=== PATIENT | male | born 1970 | race African-American/Black ===

== ENCOUNTER 2024-03-07 15:57 | Inpatient (IN) | payer OTHER ==
[~2024-03-07] VITALS: Ht 185.4 cm; Wt 83.8 kg
[2024-03-07 16:25] LABS: Basophils # (auto) 0 10 ^3/uL (0-0.2); Basophils % (auto) 0.3 % (0.0-2.0); Eosinophils # (auto) 0 10 ^3/uL (0-0.8); Hematocrit 38.8 % (41.0-53.0); Hemoglobin 13.2 g/dL (13.5-17.5); Mean Corpuscular Hemoglobin 28.8 pg (28.0-32.0); Mean Corpuscular Hgb Conc. 34.1 g/dL (32.0-36.0); Mean Corpuscular Volume 84.4 fL (80.0-100.0); Monocytes # (auto) 0.9 10 ^3/uL (0-1.3); Neutrophils # (auto) 12.6 10 ^3/uL (1.6-8.6); Neutrophils % (auto) 86.7 % (37.0-80.0); Platelet Count (auto) 328 10^3/uL (140-450); Red Cell Distribution Width 14.4 % (11.8-14.3); White Blood Cell 14.6 10^3/uL (4.4-10.8)
[2024-03-07] MEDS: KETOROLAC TROMETH 30 MG/ML 1ML VIAL IM ONE (16:30)
--- NOTE | 2024-03-07 16:30 | DVH ---
CHEST RADIOGRAPH Indication: CP Technique: Single frontal view of the chest was obtained Comparison: None FINDINGS: Lines and Tubes: None Lungs: Patchy opacity near the right cardiophrenic angle. Pleura: No effusion. No pneumothorax. Cardiomediastinal contours: Unremarkable Bones: No acute osseous abnormality. IMPRESSION: 1. Right lower lung zone patchy opacity could represent developing infiltrate versus atelectasis. HS:Y
[2024-03-07 17:16] LABS: Alanine Aminotransferase 13 U/L (7-40); Albumin 4.2 g/dL (3.2-4.8); Anion Gap 14 (5-15); BUN/Creatinine Ratio 12.3 (10.0-20.0); Blood Urea Nitrogen 16 mg/dL (9-23); Calcium 9.8 mg/dL (8.7-10.4); Potassium 3.6 mmol/L (3.5-5.1)
[2024-03-07 17:17] LABS: Alkaline Phosphatase 44 U/L (46-116); Aspartate Aminotransferase 8 U/L (13-40); Bilirubin, Total 1.8 mg/dL (0.2-1.0); Carbon Dioxide 18 mmol/L (20-31); Chloride 92 mmol/L (98-107); Glucose 254 mg/dL (74-106); Sodium 124 mmol/L (136-145)
[2024-03-07 17:27] VITALS: PULSE 79; RESP 14; O2SAT 98
[2024-03-07] MEDS: cefTRIAXone 1GM/50ML D5W 50 ML IV ONE (17:41)
[2024-03-07] MEDS: AZITHROMYCIN 500MG/ 250ML 250 ML IV ONE (17:41)
[2024-03-07 18:05] LABS: Lactic Acid w/Reflex 2.9 mmol/L (0.4-2.0)
[2024-03-07] MEDS: IOHEXOL 350 MG/ML 100ML IJ ONE (18:48)
--- NOTE | 2024-03-07 18:48 | DVH ---
EXAM: CT HEAD WITHOUT CONTRAST INDICATION: aloc TECHNIQUE: CT of the head without intravenous contrast. Radiation Dose Information: CT Dose: CTDI volume is 59.19 mGy. Dose-length product is 1240.44 mGy*cm The dose indicators for CT are the volume Computed Tomography (CT) Dose Index (CTDIvol) and the Dose Length Product (DLP), and are measured in units of mGy and mGy-cm, respectively. These indicators are not patient dose, but values generated from the CT scanner acquisition factors. The report includes radiation exposure data for exposures received during this examination. COMPARISON: None FINDINGS: There is no evidence of acute intracranial hemorrhage, extra-axial collection, mass effect, midline s hift, herniation or hydrocephalus. The ventricles, sulci and cisterns are age appropriate. The ramos-white differentiation is intact. Patchy periventricular and subcortical white matter hypoattenuation is nonspecific but may be related to small vessel ischemic disease. The visualized paranasal sinuses and mastoid air cells are clear. The surrounding soft tissues and osseous structures are unremarkable. IMPRESSION: 1. No acute intracranial hemorrhage. 2. No CT findings of territorial ischemia.
[2024-03-07] MEDS: SODIUM CHLORIDE 0.9% 1,000 ML IV ONE ×2 (18:49→20:15)
--- NOTE | 2024-03-07 19:21 | DVH ---
CLINICAL HISTORY: sob TECHNIQUE: CT angiogram of the chest was performed with intravenous contrast. 3D MIP reconstructed i mages were created and archived on the PACS system. This exam was performed according to our [facility] dose optimization program. Up-to-date CT equipment and radiation dose reduction techniques are u tilized as appropriate. CTDI: [CTDIvol] DLP: 895.17 WID: COMPARISON: None FINDINGS: Lower Neck: Unremarkable Axilla, Mediastinum and Serene: There is right hilar lymphadenopathy. A few enlarged mediastinal lymph nodes. No left hilar lymphadenopathy. No axillary lymphadenopathy. Heart and Great Vessels: Normal-sized heart with trace pericardial fluid. The thoracic aorta is frederick nt and normal caliber. Patent 3-vessel aortic arch. No central or segmental pulmonary artery filling defect to suggest pulmonary embolism. There is motion artifact in the lower lungs limiting evaluatio n for more distal pulmonary artery filling defects Airway, Lungs and Pleura: Trachea and central airways are patent. There is a small consolidation with a central cavitation in the right middle lobe measuring approximately 2.1 x 4.7 cm on series 3, imag e 88. There is no pleural effusion or pneumothorax. Chest Wall and Osseous Structures: Multilevel thoracic spondylosis. Mild degenerative changes of the bilateral shoulders. No destructive osseous lesion. Upper abdomen: No acute abnormality IMPRESSION: 1. No evidence of pulmonary embolism, slight limited evaluation of subsegmental pulmonary arteries du e to respiratory motion. 2. Consolidation with cavitation in the right middle lobe suggesting pneumonia. Follow-up CT chest r ecommended after appropriate course of medical therapy to assess for improvement or resolution. 3. Right hilar and mediastinal lymphadenopathy, nonspecific though likely reactive
--- NOTE | 2024-03-07 19:31 | ED.PDOC ---
HPI (NEURO) HPI Comments 53-year-old male brought in by friend. Friend states that patient was recently diagnosed with pneumonia, he was lying in his bed over a week. Been diaphoretic. He noticed today that patient was acting more confused. He picked up the patient and put him in the car to make him come to the emergency department. Patient states he was seen at [facility] last week. He was complaining of shortness a breath body ache fever. When nurses went to recheck the patient patient was stating he had no pain and started to make no coherent since. Patient was brought back and placed in room 19. Chief Complaint: General Weakness Time Seen by MD: 16:00 Reviewed Notes: Nurses Notes Information Source: Patient, Friend, Relative Mode of Arrival: Wheelchair Past Medical History PAST MEDICAL HISTORY: DM, HTN Constitutional: reports: diaphoresis, fatigue, fever; denies: chills, malaise, sweats, weakness, others EENTM: denies: blurred vision, double vision, ear bleeding, ear discharge, ear drainage, ear pain, ear ringing, eye pain, eye redness, hearing loss, mouth pain, mouth swelling, nasal discharge, nose bleeding, nose congestion, nose pain, photophobia, tearing, throat pain, throat swelling, voice changes, others Respiratory: reports: cough, SOB at rest; denies: hemoptysis, orthopnea, shortness of breath, SOB with excertion, stridor, wheezing, others Cardiovascular: denies: chest pain, dizzy spells, diaphoresis, Dyspnea on exertion, edema, irregular heart beat, left arm pain, lightheadedness, palpitations, PND, syncope, others Gastrointestinal: denies: abdomen distended, abdominal pain, blood streaked bowels, constipated, diarrhea, dysphagia, difficulty swallowing, hematemesis, melena, nausea, poor appetite, poor fluid intake, rectal bleeding, rectal pain, vomiting, others Genitourinary: denies: burning, dysuria, flank pain, frequency, hematuria, incontinence, penile discharge, penile sore, pain, testicle pain, testicle swelling, urgency, others Neurological: denies: dizziness, fainting, headache, left sided numbness, left sided weakness, numbness, paresthesia, pre-existing deficit, right sided numbness, right sided weakness, seizure, speech problems, tingling, tremors, weakness, others Musculoskeletal: denies: back pain, gout, joint pain, joint swelling, muscle pain, muscle stiffness, neck pain, others Integumetry: denies: bruises, change in color, change in hair/nails, dryness, laceration, lesions, lumps, rash, wounds, others Allergic/Immunocompromised: denies: Difficulty Healing, Frequent Infections, Hives, Itching, others Physical Exam General Appearance: Moderate Distress, Normal HEENT: Normal ENT Inspection, Pharynx Normal, TMs Normal Neck: Full Range of Motion, Non-Tender, Normal, Normal Inspection Respiratory: Chest Non-Tender, Decreased Breath Sounds, No Accessory Muscle Use, No Respiratory Distress, Normal Breath Sounds Cardiovascular: No Edema, No JVD, No Murmur, No Gallop, Normal Peripheral Pulses, Regular Rate/Rhythm Breast Exam: Deferred Gastrointestinal: No Organomegaly, Non Tender, No Pulsatile Mass, Normal Bowel Sounds, Soft Genitalia: Deferred Pelvic: Deferred Rectal: Deferred Extremities: No calf tenderness, Normal capillary refill, Normal inspection, Normal range of motion, Non-tender, No pedal edema Musculoskeletal : Apperance: Normal 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 Was a procedure done?: No Differential Diagnosis (SZ) Seizure: Syncope, N/A General Weakness: Anemia, Dehydration, Dysrhythmia, Electrolyte imbalance, Renal failure X-Ray, Labs, Meds, VS Vital Signs Date Time Temp Pulse Resp B/P (MAP) Pulse Ox O2 Delivery O2 Flow Rate FiO2 03/07/24 18:00 60 21 117/81 (93) 100 03/07/24 17:33 78 16 127/77 (94) 97 03/07/24 17:27 79 14 98 Room Air* 0 21 03/07/24 16:12 98.1 115 20 122/75 (91) 100 03/07/24 16:04 115 Lab Test 03/07/24 19:10 03/07/24 17:10 03/07/24 16:10 03/07/24 16:02 Range/Units Lactic Acid Level Pending 2.9 *H 0.4-2.0 mmol/L Troponin I High Sensitivity Pending 21 26 </=54 ng/L White Blood Count 14.6 H 4.4-10.8 10^3/uL Red Blood Count 4.60 4.5-5.90 10^6/uL Hemoglobin 13.2 L 13.5-17.5 g/dL Hematocrit 38.8 L 41.0-53.0 % Mean Corpuscular Volume 84.4 80.0-100.0 fL Mean Corpuscular Hemoglobin 28.8 28.0-32.0 pg Mean Corpuscular Hemoglobin Concent 34.1 32.0-36.0 g/dL Red Cell Distribution Width 14.4 H 11.8-14.3 % Platelet Count 328 140-450 10^3/uL Mean Platelet Volume 7.8 6.9-10.8 fL Neutrophils (%) (Auto) 86.7 H 37.0-80.0 % Lymphocytes (%) (Auto) 7.0 L 10.0-50.0 % Monocytes (%) (Auto) 6.0 0.0-12.0 % Eosinophils (%) (Auto) 0.0 0.0-7.0 % Basophils (%) (Auto) 0.3 0.0-2.0 % Neutrophils # (Auto) 12.6 H 1.6-8.6 10 ^3/uL Lymphocytes # (Auto) 1.0 0.4-5.4 10 ^3/uL Monocytes # (Auto) 0.9 0-1.3 10 ^3/uL Eosinophils # (Auto) 0 0-0.8 10 ^3/uL Basophils # (Auto) 0 0-0.2 10 ^3/uL Nucleated Red Blood Cells 0.0 % Sodium Level 124 L 136-145 mmol/L Potassium Level 3.6 3.5-5.1 mmol/L Chloride Level 92 L 98-107 mmol/L Carbon Dioxide Level 18 L 20-31 mmol/L Anion Gap 14 5-15 Blood Urea Nitrogen 16 9-23 mg/dL Creatinine 1.30 0.700-1.30 mg/dL Glomerular Filtration Rate Calc 65 >90 mL/min BUN/Creatinine Ratio 12.3 10.0-20.0 Serum Glucose 254 H 74-106 mg/dL Calcium Level 9.8 8.7-10.4 mg/dL Total Bilirubin 1.8 H 0.2-1.0 mg/dL Aspartate Amino Transferase (AST) 8 L 13-40 U/L Alanine Aminotransferase (ALT) 13 7-40 U/L Alkaline Phosphatase 44 L 46-116 U/L B-Type Natriuretic Peptide 7.20 0-100 pg/mL Total Protein 7.0 5.7-8.2 g/dL Albumin 4.2 3.2-4.8 g/dL POC Glucose 282 H 70-106 mg/dl Current Medications Medications (Trade) Dose Ordered Sig/Mk Route Start Time Stop Time Status Last Admin Ketorolac Tromethamine (Toradol Injection) 30 mg ONCE ONCE IM 03/07/24 16:15 03/07/24 16:16 DC 03/07/24 16:30 Azithromycin 250 ml @ 125 mls/hr ONCE ONCE IV 03/07/24 17:00 03/07/24 18:59 DC 03/07/24 17:41 Ceftriaxone Sodium 50 ml @ 100 mls/hr ONCE ONCE IV 03/07/24 17:00 03/07/24 17:29 DC 03/07/24 17:41 Sodium Chloride 1,000 ml @ 1,000 mls/hr Q1H ONCE IV 03/07/24 19:00 03/07/24 19:59 03/07/24 18:49 X-Ray, Labs, Meds, VS Comment Patient will be admitted for metabolic encephalopathy Patient has pneumonia with suspected sepsis anemia Blood cultures, patient was started on azithromycin and Rocephin 2 L IV fluid bolus started Patient has prior medical visits reviewed. Med reconciliation performed Vital signs reviewed Time of 1ST Reevaluation: 19:30 Reevaluation 1ST: Unchanged Patient Education/Counseling: Diagnosis, Treatment Family Education/Counseling: Diagnosis, Treatment Departure 1 Departure Time of Disposition: 19:29 Impression: Primary Impression: Pneumonia Qualified Codes: J18.9 - Pneumonia, unspecified organism Additional Impressions: Sepsis Qualified Codes: A41.9 - Sepsis, unspecified organism Metabolic encephalopathy Disposition: ADMITTED INPATIENT Condition: Guarded Critical Care Note Critical Care Time?: Yes (30 min-critical care time only) Critical care comment: Due to a high probability of clinically significant, life threatening deterioration, the patient required my highest level of preparedness to intervene emergently and I personally spent this critical care time directly and personally managing the patient. This critical care time included obtaining a history; examining the patient; pulse oximetry; ordering and review of studies; arranging urgent treatment with development of a management plan; evaluation of patient's response to treatment; frequent reassessment; and, discussions with other providers. This critical care time was performed to assess and manage the high probability of imminent, life-threatening deterioration that could result in multi-organ failure. It was exclusive of separately billable procedures and treating other patients and teaching time. Stability Stability form required: No Heart Score Heart Score: Heart Score Response (Comments) Value History N/A 0 EKG N/A 0 Age N/A 0 Risk Factors N/A 0 Troponin N/A 0 Total 0 MANDI TALBERT COMB FIXER Mar 07, 2024 19:31
[2024-03-07] MEDS: SODIUM CHLORIDE 0.9% 1,000 ML IV SCH (20:00)
[2024-03-07] MEDS: levoFLOXacin 500MG 100 ML IV SCH (20:00)
--- NOTE | 2024-03-07 20:03 | DVHHP2 ---
Admitting Diagnosis: Chief complaint: I was having no trouble breathing and a cough. History of Present Illness This is a 53-year-old male with a past medical history who presented with complaint of a one-week history of intermittent shortness of breath and associated nonproductive cough prompting him to seek medical attention at [facility] Emergency room where he was admitted for further evaluation and management. Patient reports that his shortness of breath has improved after receiving a breathing treatment but still does not feel at baseline. Patient also complaining of mild generalized weakness. No major events reported overnight. Patient denies complaints of fevers, chills, change in appetite, chest pain, palpitations, dyspnea on exertion, abdominal pain, nausea, vomiting, diarrhea, constipation, dysuria, lightheade dness, focal weakness, paresthesia or other complaints. Last bowel movement was yesterday, brown, soft, no melena, no hematochezia. Past Medical History Diabetes mellitus type 2 Hypertension Family History Noncontributory Social History Patient denies current smoking, alcohol use or recreational/illicit drug use. Allergies: Coded Allergies: NO KNOWN ALLERGIES (Unverified , 03/07/24) Current Medications Current Medications Medications (Trade) Dose Ordered Sig/Mk Route PRN Reason Start Time Stop Time Status Last Admin Sodium Chloride 1,000 ml @ 100 mls/hr Q10H IV 03/07/24 20:00 03/08/24 06:04 Acetaminophen (Tylenol Tablet) 650 mg Q6HP PRN PO PAIN SCALE 1-3 OR TEMP>100.4 03/07/24 20:00 03/08/24 09:56 Ondansetron HCl (Zofran) 4 mg Q4HP PRN IV NAUSEA / VOMITING 03/07/24 20:00 03/08/24 09:57 Albuterol (Ventolin Medneb) 2.5 mg Q6HWA NEB 03/08/24 06:00 03/08/24 07:23 Levofloxacin/ Dextrose 100 ml @ 100 mls/hr DAILY IV 03/07/24 20:00 03/08/24 09:56 Vital Signs Vital Signs Date Time Temp Pulse Resp B/P (MAP) Pulse Ox O2 Delivery O2 Flow Rate FiO2 03/08/24 10:26 94 Nasal Cannula* 3 32 03/08/24 09:56 100.8 11/28/24 09:27 83 20 142/78 (99) Physical Exam Physical Exam: General: This is a 53-year-old male appearing stated age in no acute distress. HEENT: Pupils equal and reactive to light and accommodation. Extraocular muscles intact. Mucous membranes moist. Conjunctivae [place]. Anicteric Sclera. Lungs: Bilateral air entry decreased at bases with right posterior mid chest rales; no wheezes, rhonchi, rales. Heart: Regular Rate and Rhythm. Normal S1/S2. Abdomen: Bowel Sounds Normoactive, soft, non-tender, non-distended, no cva tenderness. Extremities: No clubbing, cyanosis, edema. No calf tenderness. Pedal pulses 2+. Neurologic: Patient alert, awake and oriented x 3. Cranial nerves II through XII intact. No focal deficits on gross sensorimotor exam. Results Labs Test 03/08/24 07:00 03/08/24 04:10 03/07/24 19:10 03/07/24 16:10 Range/Units White Blood Count 12.1 H 4.4-10.8 10^3/uL Red Blood Count 4.21 L 4.5-5.90 10^6/uL Hemoglobin 12.3 L 13.5-17.5 g/dL Hematocrit 35.7 L 41.0-53.0 % Mean Corpuscular Volume 84.7 80.0-100.0 fL Mean Corpuscular Hemoglobin 29.3 28.0-32.0 pg Mean Corpuscular Hemoglobin Concent 34.6 32.0-36.0 g/dL Red Cell Distribution Width 14.7 H 11.8-14.3 % Platelet Count 279 140-450 10^3/uL Mean Platelet Volume 7.7 6.9-10.8 fL Neutrophils (%) (Auto) 76.3 37.0-80.0 % Lymphocytes (%) (Auto) 12.7 10.0-50.0 % Monocytes (%) (Auto) 9.8 0.0-12.0 % Eosinophils (%) (Auto) 0.5 0.0-7.0 % Basophils (%) (Auto) 0.7 0.0-2.0 % Neutrophils # (Auto) 9.3 H 1.6-8.6 10 ^3/uL Lymphocytes # (Auto) 1.5 0.4-5.4 10 ^3/uL Monocytes # (Auto) 1.2 0-1.3 10 ^3/uL Eosinophils # (Auto) 0.1 0-0.8 10 ^3/uL Basophils # (Auto) 0.1 0-0.2 10 ^3/uL Nucleated Red Blood Cells 0.0 % Sodium Level 130 #L 136-145 mmol/L Potassium Level 3.9 3.5-5.1 mmol/L Chloride Level 97 L 98-107 mmol/L Carbon Dioxide Level 24 20-31 mmol/L Anion Gap 9 5-15 Blood Urea Nitrogen 16 9-23 mg/dL Creatinine 1.27 0.700-1.30 mg/dL Glomerular Filtration Rate Calc 67 >90 mL/min BUN/Creatinine Ratio 12.6 10.0-20.0 Serum Glucose 296 H 74-106 mg/dL Calcium Level 9.4 8.7-10.4 mg/dL Lactic Acid Level 2.6 *H 0.4-2.0 mmol/L Troponin I High Sensitivity 19 </=54 ng/L Total Bilirubin 1.8 H 0.2-1.0 mg/dL Aspartate Amino Transferase (AST) 8 L 13-40 U/L Alanine Aminotransferase (ALT) 13 7-40 U/L Alkaline Phosphatase 44 L 46-116 U/L B-Type Natriuretic Peptide 7.20 0-100 pg/mL Total Protein 7.0 5.7-8.2 g/dL Albumin 4.2 3.2-4.8 g/dL Test 03/07/24 16:02 Range/Units POC Glucose 282 H 70-106 mg/dl Plan This is a 53-year-old male with a past medical history who presents with complaint of shortness of breath and cough admitted for further evaluation and management of: 1. Community-acquired pneumonia with cavitation. Continue supportive management with supplemental oxygen as needed, bronchodilator therapy and antibiotic therapy. Antitussive therapy as needed. Trend leukocytosis and lactic acidosis. 2. Diabetes mellitus type 2. Reconciled home medications. Coverage insulin sliding scale. 3. Hypertension. Monitor blood pressure. Reconcile home medications and restart. Patient vaguely recalls being on lisinopril at home. 4. Debility. Physical therapy evaluation. Aspiration and pressure ulcer precautions Incentive spirometry SCDs bilaterally All above discussed with the patient who verbalized agreement and understanding of current status and plan. All questions answered. Patient declined reaching out to any family for update. This medical document was created using an electronic medical record system with [employer] dictation system. Although this document has been carefully reviewed, there may still be some phonetic and typographical errors. These areas are purely typographical due to imperfections of the software programs, and do not reflect any compromise in the patient's medical care Plan discussed with: Other EVETTE LUTZ MD Mar 07, 2024 20:03
[2024-03-07 20:12] VITALS: O2SAT 96
[2024-03-07] MEDS: ALBUTEROL SULF 2.5 MG/0.5ML(0.5%) NEB SOLN NEB ONE (20:20)
[2024-03-07] MEDS: IPRATROPIUM BROM 0.5 MG/2.5ML INH SOL NEB ONE (20:21)
[2024-03-07 21:51] VITALS: BP 132/66; PULSE 75; RESP 20; O2SAT 96
[2024-03-08] VITALS (14 sets, daily range): BP systolic 142–187; BP diastolic 60–93; PULSE 67–97; RESP 18–26; TEMP 99.2–102.3; O2SAT 94–100
[2024-03-08 04:46] LABS: Basophils # (auto) 0.1 10 ^3/uL (0-0.2); Basophils % (auto) 0.7 % (0.0-2.0); Eosinophils # (auto) 0.1 10 ^3/uL (0-0.8); Eosinophils % (auto) 0.5 % (0.0-7.0); Hematocrit 35.7 % (41.0-53.0); Hemoglobin 12.3 g/dL (13.5-17.5); Lymphocytes # (auto) 1.5 10 ^3/uL (0.4-5.4); Lymphocytes % (auto) 12.7 % (10.0-50.0); Mean Corpuscular Hemoglobin 29.3 pg (28.0-32.0); Mean Corpuscular Hgb Conc. 34.6 g/dL (32.0-36.0); Mean Corpuscular Volume 84.7 fL (80.0-100.0); Monocytes # (auto) 1.2 10 ^3/uL (0-1.3); Monocytes % (auto) 9.8 % (0.0-12.0); Neutrophils # (auto) 9.3 10 ^3/uL (1.6-8.6); Neutrophils % (auto) 76.3 % (37.0-80.0); Platelet Count (auto) 279 10^3/uL (140-450); Red Blood Cells 4.21 10^6/uL (4.5-5.90); Red Cell Distribution Width 14.7 % (11.8-14.3); White Blood Cell 12.1 10^3/uL (4.4-10.8)
[2024-03-08 04:56] LABS: Potassium 3.9 mmol/L (3.5-5.1)
[2024-03-08 04:57] LABS: Anion Gap 9 (5-15); Calcium 9.4 mg/dL (8.7-10.4); Carbon Dioxide 24 mmol/L (20-31)
[2024-03-08 05:02] LABS: BUN/Creatinine Ratio 12.6 (10.0-20.0); Blood Urea Nitrogen 16 mg/dL (9-23)
[2024-03-08 05:06] LABS: Chloride 97 mmol/L (98-107); Glucose 296 mg/dL (74-106); Sodium 130 mmol/L (136-145)
[2024-03-08] MEDS: ALBUTEROL SULF 2.5 MG/0.5ML(0.5%) NEB SOLN NEB SCH (07:23)
[2024-03-08] MEDS: ACETAMINOPHEN 325 MG TAB PO PRN ×2 (09:56→20:51)
[2024-03-08] MEDS: ONDANSETRON HCL 4 MG/2 ML VIAL IV PRN (09:57)
[2024-03-08 10:48] LABS: Urine Bacteria None Seen /hpf (None Seen)
[2024-03-08 11:07] LABS: Urine Blood Negative /uL (Negative); Urine Clarity Clear (Clear); Urine Color Light-Yellow (Yellow); Urine Protein, UAD Negative (Negative); Urine Specific Gravity 1.023 (1.001-1.035); Urine Urobilinogen Normal (Negative); Urine WBC 2 /hpf (0 - 3)
[2024-03-08] MEDS ORDERED: DEXTROSE (50%) 50ML SYRG IV PRN (11:15)
--- NOTE | 2024-03-08 11:15 | DVHPN2 ---
Progress Note - Dictate Date Seen: Mar 08, 2024 Medical Necessity Reason Pt with a Central, PICC or Fol: No Subjective No major events reported overnight. Patient feeling much better. He reports improving generalized weakness but is hoping to go home today for Thanksgiving. Patient denies complaints of fevers, chills, change in appetite, chest pain, palpitations, cough, shortness of breath, dyspnea on exertion, abdominal pain, nausea, vomiting, diarrhea, constipation, dysuria, lightheadedness, focal weakness, paresthesia or other complaints. Last bowel movement was yesterday, brown, soft, no melena, no hematochezia. vital signs Vital Sign Date Time Temp Pulse Resp B/P (MAP) Pulse Ox O2 Delivery O2 Flow Rate FiO2 03/08/24 10:26 94 Nasal Cannula* 3 32 03/08/24 09:56 100.8 03/08/24 09:27 83 20 142/78 (99) Total Intake and Output 03/07/24 03/07/24 03/08/24 15:00 23:00 07:00 Intake Total 1300 ml Balance 1300 ml medications Current Medications Medications Dose Ordered Sig/Mk Route Start Time Stop Time Status Last Admin Dose Admin Sodium Chloride 1,000 ml @ 100 mls/hr Q10H IV 03/07/24 20:00 03/08/24 06:04 Acetaminophen 650 mg Q6HP PRN PO 03/07/24 20:00 03/08/24 09:56 Ondansetron HCl 4 mg Q4HP PRN IV 03/07/24 20:00 03/08/24 09:57 Albuterol 2.5 mg Q6HWA NEB 03/08/24 06:00 03/08/24 07:23 Levofloxacin/ Dextrose 100 ml @ 100 mls/hr DAILY IV 03/07/24 20:00 03/08/24 09:56 objective Physical Exam: General: This is a 53-year-old male appearing stated age in no acute distress. HEENT: Pupils equal and reactive to light and accommodation. Extraocular muscles intact. Mucous membranes moist. Conjunctivae [place]. Anicteric Sclera. Lungs: Bilateral air entry with mild right posterior mid chest rales; no wheezes. Examination overall improved compared to yesterday. Heart: Regular Rate and Rhythm. Normal S1/S2. Abdomen: Bowel Sounds Normoactive, soft, non-tender, non-distended, no cva tenderness. Extremities: No clubbing, cyanosis, edema. No calf tenderness. Pedal pulses 2+. Neurologic: Patient alert, awake and oriented x 3. Cranial nerves II through XII intact. No focal deficits on gross sensorimotor exam. laboratory and microbiology Laboratory Tests 03/08/24 04:10 Test 03/08/24 04:10 Range/Units Serum Glucose 296 H 74-106 mg/dL Assessment/Plan This is a 53-year-old male with a past medical history who presents with complaint of shortness of breath and cough admitted for further evaluation and management of: 1. Community-acquired pneumonia with cavitation. Continue supportive management with supplemental oxygen as needed, bronchodilator therapy and antibiotic therapy. Antitussive therapy as needed. Leukocytosis trending down. Trend lactic acidosis. Infectious Disease consultation given cavitation and mild low-grade fevers at 100.8 for antibiotic recommendations on discharge. Encourage out of bed to chair as tolerated. 2. Diabetes mellitus type 2. Reconciled home medications. Coverage insulin sliding scale. 3. Hypertension. Monitor blood pressure. Reconcile home medications and restart. Patient vaguely recalls being on lisinopril at home. 4. Debility. Physical therapy evaluation. Aspiration and pressure ulcer precautions Incentive spirometry SCDs bilaterally All above discussed with the patient who verbalized agreement and understanding of current status and plan. All questions answered. Patient declined reaching out to any family for update. Patient has intact medical decision-making capacity. This medical document was created using an electronic medical record system with [id number] dictation system. Although this document has been carefully reviewed, there may still be some phonetic and typographical errors. These areas are purely typographical due to imperfections of the software programs, and do not reflect any compromise in the patient's medical care Plan discussed with: Other EVETTE LUTZ MD Mar 08, 2024 11:15
[2024-03-08] MEDS: ACCU-CHEK COMFORT CURVE STRIP VI SCH (11:58)
[2024-03-08] MEDS: InsuLIN REG 1unit/0.01ml Soln (100units/ml) SC SCH (11:58)
[2024-03-08] MEDS: LISINOPRIL 5 MG TAB PO SCH (11:58)
--- NOTE | 2024-03-08 12:04 | DVH ---
CLINICAL HISTORY: DVT. COMPARISON: None TECHNIQUE: Bilateral lower extremity venous duplex exam was performed. Grayscale, color flow, and spe ctral waveform analysis was performed. The deep veins of the lower extremity were evaluated for compr ession, phasic flow, and augmentation. FINDINGS: This examination demonstrates normal compression, augmentation, and phasic flow of both low er extremities. No evidence for echogenic thrombus within the common femoral, femoral, and popliteal veins. In addition, the calf veins demonstrated normal compression and color flow. IMPRESSION: There is no evidence for DVT in either lower extremity.
[2024-03-08] MEDS: SODIUM CHLORIDE 0.9% 1,000 ML IV ONE (12:57)
[2024-03-08] MEDS: hydrALAZINE HCL 20 MG/ML VL IV PRN (16:21)
[2024-03-08] MEDS ORDERED: VANCOMYCIN PER PHARMACY 0 MG IV SCH (16:45)
[2024-03-08] MEDS: VANCOMYCIN 1GM/200ML PREMIX IV SCH (17:10)
--- NOTE | 2024-03-08 23:14 | DVHINCON2 ---
Date of service: Mar 08, 2024 Family History: Patient reports no known family medical history. Allergies: Coded Allergies: NO KNOWN ALLERGIES (Unverified , 03/07/24) Current Medications Current Medications Medications (Trade) Dose Ordered Sig/Mk Route PRN Reason Start Time Stop Time Status Last Admin Albuterol (Ventolin Medneb) 2.5 mg Q6HWA NEB 03/08/24 06:00 03/08/24 19:21 Diagnostic Test (Pha) (Accu-Chek Comfort Curve T) 1 strip ACHS 03/08/24 11:30 03/08/24 21:21 Insulin Human Regular (InsuLIN R) ACHS SC 03/08/24 11:30 03/08/24 21:25 Dextrose 50 ml UD PRN IV Blood Sugar LESS THAN 60 03/08/24 11:15 Lisinopril (Zestril Tablet) 5 mg DAILY PO 03/08/24 11:15 03/08/24 11:58 Hydralazine HCl (Apresoline Injection) 10 mg Q6HP PRN IV SBP>160 03/08/24 11:15 03/08/24 16:21 Vancomycin HCl 0 ml @ 0 mls/hr UD IV 03/08/24 16:45 Vancomycin HCl 200 ml @ 200 mls/hr Q1H IV 03/08/24 17:00 03/08/24 18:59 DC 03/08/24 18:23 Acetaminophen (Tylenol Tablet) 650 mg Q4HP PRN PO PAIN SCALE 1-3 OR TEMP>100.4 03/08/24 17:15 03/08/24 20:51 Vancomycin HCl 200 ml @ 200 mls/hr Q12H IV 03/09/24 05:00 Vital Signs Vital Signs Date Time Temp Pulse Resp B/P (MAP) Pulse Ox O2 Delivery O2 Flow Rate FiO2 03/08/24 21:51 98.5 03/08/24 21:00 73 20 187/83 (117) 95 03/08/24 20:00 Nasal Cannula* 3 32 Labs/Diagnostic Data Labs Test 03/08/24 20:48 03/08/24 11:35 03/08/24 07:00 03/08/24 04:10 Range/Units POC Glucose 227 H 70-106 mg/dl Lactic Acid Level 1.5 0.4-2.0 mmol/L Urine Color Light-yellow Yellow Urine Clarity Clear Clear Urine pH 5.0 5.0-9.0 Urine Specific [place] 1.023 1.001-1.035 Urine Protein Negative Negative Urine Ketones 1+ H Negative Urine Blood Negative Negative /uL Urine Nitrite Negative Negative Urine Bilirubin Negative Negative Urine Urobilinogen Normal Negative mg/dL Urine Leukocyte Esterase Negative Negative /uL Urine RBC 2 0 - 3 /hpf Urine WBC 2 0 - 3 /hpf Urine Squamous Epithelial Cells None seen <5 /hpf Urine Bacteria None seen None Seen /hpf Urine Glucose 4+ H Normal mg/dL White Blood Count 12.1 H 4.4-10.8 10^3/uL Red Blood Count 4.21 L 4.5-5.90 10^6/uL Hemoglobin 12.3 L 13.5-17.5 g/dL Hematocrit 35.7 L 41.0-53.0 % Mean Corpuscular Volume 84.7 80.0-100.0 fL Mean Corpuscular Hemoglobin 29.3 28.0-32.0 pg Mean Corpuscular Hemoglobin Concent 34.6 32.0-36.0 g/dL Red Cell Distribution Width 14.7 H 11.8-14.3 % Platelet Count 279 140-450 10^3/uL Mean Platelet Volume 7.7 6.9-10.8 fL Neutrophils (%) (Auto) 76.3 37.0-80.0 % Lymphocytes (%) (Auto) 12.7 10.0-50.0 % Monocytes (%) (Auto) 9.8 0.0-12.0 % Eosinophils (%) (Auto) 0.5 0.0-7.0 % Basophils (%) (Auto) 0.7 0.0-2.0 % Neutrophils # (Auto) 9.3 H 1.6-8.6 10 ^3/uL Lymphocytes # (Auto) 1.5 0.4-5.4 10 ^3/uL Monocytes # (Auto) 1.2 0-1.3 10 ^3/uL Eosinophils # (Auto) 0.1 0-0.8 10 ^3/uL Basophils # (Auto) 0.1 0-0.2 10 ^3/uL Nucleated Red Blood Cells 0.0 % Sodium Level 130 #L 136-145 mmol/L Potassium Level 3.9 3.5-5.1 mmol/L Chloride Level 97 L 98-107 mmol/L Carbon Dioxide Level 24 20-31 mmol/L Anion Gap 9 5-15 Blood Urea Nitrogen 16 9-23 mg/dL Creatinine 1.27 0.700-1.30 mg/dL Glomerular Filtration Rate Calc 67 >90 mL/min BUN/Creatinine Ratio 12.6 10.0-20.0 Serum Glucose 296 H 74-106 mg/dL Calcium Level 9.4 8.7-10.4 mg/dL Test 03/07/24 19:10 03/07/24 16:10 Range/Units Troponin I High Sensitivity 19 </=54 ng/L Total Bilirubin 1.8 H 0.2-1.0 mg/dL Aspartate Amino Transferase (AST) 8 L 13-40 U/L Alanine Aminotransferase (ALT) 13 7-40 U/L Alkaline Phosphatase 44 L 46-116 U/L B-Type Natriuretic Peptide 7.20 0-100 pg/mL Total Protein 7.0 5.7-8.2 g/dL Albumin 4.2 3.2-4.8 g/dL Microbiology Date/Time Source Procedure Growth Status 03/07/24 17:10 Blood Blood Culture - Preliminary NO GROWTH AFTER 24 HOURS OF INCUBATION. Resulted Problems(with codes): (1) Sepsis (2) Pneumonia (3) Metabolic encephalopathy Plan/Recommendation ASSESSMENT AND PLAN: ID Problem List: - Type 2 Diabetes Mellitus - Hypertension - Cavitary Pneumonia - Unintentional Weight Loss - Night Sweats - Headaches/Migraines Assessment This is a 53-year-old male with a past medical history of Type 2 Diabetes Mellitus and Hypertension who presents with worsening hyperglycemia, shortness of breath, non-productive cough, and fevers. Symptoms have been ongoing since early February and include a 20 lb weight loss and night sweats. He was initially treated at Emergency Department with oral antibiotics (azithromycin) but did not respond. Currently, he experiences worsening s hortness of breath, weakness, intermittent pleuritic chest pain, and severe headaches/migraines ongoing since January. 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 Vital signs on admission included temperature 100.8F, pulse 83 bpm, respiratory rate 20 breaths per minute, blood pressure 142/82 mmHg, and oxygen saturation 94% on room air. He is now developing worsening fevers up to 102.3F with tachycardia (heart rate of 109 bpm). Laboratory findings are significant for WBC 12.1 x10?/L, lactate 2.6 mmol/L, glucose 296 mg/dL, sodium 130 mmol/L, BUN 16 mg/dL, bicarbonate 27 mmol/L, AST 8 U/L, ALT 13 U/L, and ALP 44 U/L. Blood cultures show no growth after 24 hours. Imaging studies include a chest X-ray showing right lower lobe opacity suggestive of developing infiltrates. CT chest reveals consolidation with cavitation in the right middle lobe suggesting pneumonia and right hilar and mediastinal adenopathy, nonspecific and likely reactive. CT angiogram shows no evidence of pulmonary embolism. Head CT shows no acute intracranial hemorrhage. Given the cavitary pneumonia, differential diagnoses include anaerobes, gram- negative rods, MRSA, and fungal infection (coccidioidomycosis). Alternative diagnoses such as malignancy are also considered. Plan: - Continue levofloxacin. - Start vancomycin. - Obtain sputum cultures to identify the causative organism. - Check MRSA nares culture. - Check coccidioides antibody. - If fevers and dyspnea improve with vancomycin, and after obtaining MRSA nares and sputum cultures, consider discharge home with oral Bactrim and levofloxacin for a 14-day treatment course. - Schedule follow-up with Infectious Disease in two weeks. - Repeat CT scan after 2-4 weeks. - Monitor clinical recovery from pneumonia. - Continue to monitor for alternative diagnoses, including malignancy and fungal infection, which are not currently being treated. Isolation Precautions: Standard Assessment and plan were discussed with the patient as written above. Plan is subject to change pending incorporation of new incoming information/diagnostics. Updates may be added as addendum at the bottom (OR TOP) of this note. Thank you for the interesting consult. ID will continue to follow. Please contact Infectious Disease for any questions or concerns. Jez Michelle M.D. [facility] Ph: ? = History: The patient's chart and medications were reviewed in detail, and the patient was seen and examined. History obtained from: Patient Mr. Jarad Mobley is a 53-year-old male with a past medical history of Type 2 Diabetes Mellitus and Hypertension who presents with worsening hyperglycemia, shortness of breath, non-productive cough, and fevers. Symptoms have been ongoing since early February and include a 20 lb weight loss and night sweats. He reports intermittent pleuritic chest pain and severe headaches/migraines ongoing since January. He was initially treated at Emergency Department with oral antibiotics (azithromycin) but did not respond. He now presents with worsening shortness of breath and weakness. Review of Systems: A complete 10-system review of systems was completed and negative except as noted in the HPI or here. ROS: - CONSTITUTIONAL: Reports weight loss, fevers, night sweats, and weakness. - HEENT: Reports severe headaches/migraines since January. Denies changes in vision and hearing. - RESPIRATORY: Reports shortness of breath, non-productive cough, intermittent pleuritic chest pain. Denies wheezing. - CV: Denies palpitations and chest pain other than pleuritic pain with deep breaths. - GI: Denies abdominal pain, nausea, vomiting, and diarrhea. - : Denies dysuria and urinary frequency. - MSK: Denies myalgia and joint pain. - SKIN: Denies rash and pruritus. - NEUROLOGICAL: Reports severe headaches/migraines since January. Denies syncope. - PSYCHIATRIC: Denies recent changes in mood, anxiety, and depression. Past Medical History: - Type 2 Diabetes Mellitus - Hypertension Past Surgical History: History reviewed. No pertinent surgical history. Home Medications: Prior to Admission Medications: - Azithromycin (given at ED; patient did not respond) Allergies: - No Known Drug Allergies Family History: Family history non-contributory. Social History: - Marital Status: Not specified. - Tobacco Use: Patient quit smoking a month ago but was previously a long-term smoker. - Alcohol Use: Drinks alcohol on weekends. - Illicit Drug Use: Denies recreational drug use and IV drug use. 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 - Travel History: Traveled to [place] three years ago. Objective: Vital Signs on Admission: - Temp: 38.2?C (100.8?F) - BP: 142/82 mmHg - Pulse: 83 bpm - Resp: 20 breaths per minute - SpO?: 94% on room air Most Recent Vital Signs: - Temp: 39.1?C (102.3?F) - Pulse: 109 bpm Physical Exam: - General: Weak, diaphoretic, short of breath upon conversation. - Neck: Supple. No masses. - HEENT: PERRL. Normal lids and conjunctiva. Moist mucous membranes. Oropharynx without lesions, exudates, or excessive erythema. Normal appearance of the external aspects of the nose and ears. - Heart: Regular rhythm, tachycardic. No murmur. No lower extremity edema. - Lungs: Normal respiratory effort. Clear to auscultation bilaterally. No wheezes. No crackles. - Abdomen: Soft. Non-tender. Non-distended. No masses or abdominal hernia. - MSK: No digital cyanosis. Normal strength and tone in all four limbs. - Skin: Warm and dry, no rashes. - Neuro: Alert. No facial droop or slurred speech. Extraocular movements intact. Sensation intact to soft touch in all four limbs. - Psych: Appropriate mood. Full affect. Oriented to person, place, time, and situation. Diagnostic Studies: Available diagnostic studies were reviewed personally. Significant relevant results and findings are outlined below or addressed in the Assessment and Plan above. Pertinent Imaging: - Chest X-ray: - Right lower lobe opacity suggestive of developing infiltrates. - CT Chest: - Consolidation with cavitation in the right middle lobe suggesting pneumonia. - Right hilar and mediastinal adenopathy, nonspecific and likely reactive. - CT Angiogram: - No evidence of pulmonary embolism. - Head CT: - No acute intracranial hemorrhage. Laboratory Results: - WBC: 12.1 x10?/L - Hemoglobin: 12.3 g/dL - Platelets: 279 x10?/L - Lactate: 2.6 mmol/L - Glucose: 296 mg/dL - Sodium: 130 mmol/L - BUN: 16 mg/dL - Bicarbonate: 27 mmol/L AST: 8 U/L ALT: 13 U/L ALP: 44 U/L - Blood Cultures: No growth after 24 hours Additional Data: - MRSA Nares Culture: Pending - Coccidioides Antibody: Pending Plan discussed with: Patient JEZ MICHELLE MD Mar 08, 2024 23:14
[2024-03-09] VITALS (17 sets, daily range): BP systolic 106–182; BP diastolic 62–96; PULSE 66–109; RESP 16–20; TEMP 98.1–101.2; O2SAT 92–100
[2024-03-09] MEDS ORDERED: VANCOMYCIN 1GM/200ML PREMIX 200 ML IV ONE (05:59)
[2024-03-09] MEDS: VANCOMYCIN 1GM/200ML PREMIX 200 ML IV SCH (06:14)
[2024-03-09 07:07] LABS: Anion Gap 11 (5-15); Carbon Dioxide 22 mmol/L (20-31)
[2024-03-09 07:09] LABS: Chloride 96 mmol/L (98-107); Potassium 3.1 mmol/L (3.5-5.1); Sodium 129 mmol/L (136-145)
[2024-03-09 07:12] LABS: BUN/Creatinine Ratio 5.6 (10.0-20.0)
--- NOTE | 2024-03-09 07:13 | ECG ---
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
[2024-03-09 07:14] LABS: Blood Urea Nitrogen 6 mg/dL (9-23); Glucose 263 mg/dL (74-106)
[2024-03-09 07:21] LABS: Basophils # (auto) 0 10 ^3/uL (0-0.2); Basophils % (auto) 0.2 % (0.0-2.0); Eosinophils # (auto) 0 10 ^3/uL (0-0.8); Eosinophils % (auto) 0.1 % (0.0-7.0); Hematocrit 35.2 % (41.0-53.0); Hemoglobin 11.7 g/dL (13.5-17.5); Lymphocytes % (auto) 10.4 % (10.0-50.0); Mean Corpuscular Hemoglobin 28.3 pg (28.0-32.0); Mean Corpuscular Hgb Conc. 33.2 g/dL (32.0-36.0); Monocytes % (auto) 10.8 % (0.0-12.0); Neutrophils # (auto) 7.5 10 ^3/uL (1.6-8.6); Neutrophils % (auto) 78.5 % (37.0-80.0); Platelet Count (auto) 297 10^3/uL (140-450); Red Blood Cells 4.14 10^6/uL (4.5-5.90); Red Cell Distribution Width 14.1 % (11.8-14.3); White Blood Cell 9.5 10^3/uL (4.4-10.8)
[2024-03-09] MEDS: POTASSIUM EFFERVESENT TAB 25 MEQ PO SCH (11:30)
[2024-03-09] MEDS ORDERED: LEVO500T91 PO (11:32)
[2024-03-09] MEDS ORDERED: ALBUAER3 IN (11:32)
[2024-03-09] MEDS ORDERED: BACDST PO (11:32)
--- NOTE | 2024-03-09 11:40 | DVHDS2 ---
Discharge Summary Date of Admission Mar 07, 2024 at 19:48 Date of Discharge: Mar 09, 2024 Brief Hx & Hospital Course: This is a 53-year-old male with a past medical history who presented with complaint of a one-week history of intermittent shortness of breath and associated nonproductive cough prompting him to seek medical attention at [facility] Emergency room where he was admitted for further evaluation and management. Regarding Community-acquired pneumonia with cavitation, patient responded well to supportive management with supplemental oxygen as needed, bronchodilator therapy and antibiotic therapy as well as antitussive therapy as needed. Leukocytosis normalized. Lactic acid normalized. The patient reports resolve of shortness of breath. From a respiratory perspective he feels at base line but still complains of mild generalized weakness. He is hopefully can go home today but states that after receiving physical therapy evaluation, if they recommend assisted facility placement and he will consent to that as well. Infectious Disease consultation, Dr. Goins appreciated; he stated Plan: - Continue levofloxacin. - Start vancomycin. - Obtain sputum cultures to identify the causative organism. - Check MRSA nares culture. - Check coccidioides antibody. - If fevers and dyspnea improve with vancomycin, and after obtaining MRSA nares and sputum cultures, consider discharge home with oral Bactrim and levofloxacin for a 14-day treatment course. - Schedule follow- up with Infectious Disease in two weeks. - Repeat CT scan after 2-4 weeks. - Monitor clinical recovery from pneumonia. - Continue to monitor for alternative diagnoses, including malignancy and fungal infection, which are not currently being treated."I did follow up with him at this time at 11:30 a.m. on 03/09/2024 and updated him on low-grade fever 100.4, latest labs and patient condition. Dr. Mccallum stated that from his perspective, patient can be discharge with outpatient follow up with him in 1-2 weeks to continue Levaquin and Bactrim per his recommendations. Patient is in agreement with the plan. Patient has intact medical decision-making capacity, appears to be a reliable and instructed to seek medical attention immediately if he has any new, recurrent or worsening symptoms. No major events reported overnight. Patient denies complaints of fevers, chills, change in appetite, chest pain, palpitations, dyspnea on exertion, abdominal pain, nausea, vomiting, diarrhea, constipation, dysuria, lightheadedness, focal weakness, paresthesia or other complaints. Last bowel movement was yesterday, brown, soft, no melena, no hematochezia. Physical Exam: General: This is a 53-year-old male appearing stated age in no acute distress. Vital Signs Date Time Temp Pulse Resp B/P (MAP) Pulse Ox O2 Delivery O2 Flow Rate FiO2 03/09/24 11:30 98.8 72 16 145/75 95 Room Air* 0 21 HEENT: Pupils equal and reactive to light and accommodation. Extraocular muscles intact. Mucous membranes moist. Conjunctivae [place]. Anicteric Sclera. Lungs: Bilateral air entry; no wheezes, rhonchi, rales. Heart: Regular Rate and Rhythm. Normal S1/S2. Abdomen: Bowel Sounds Normoactive, soft, non-tender, non-distended, no cva tenderness. Extremities: No clubbing, cyanosis, edema. No calf tenderness. Pedal pulses 2+. Neurologic: Patient alert, awake and oriented x 3. Cranial nerves II through XII intact. No focal deficits on gross sensorimotor exam. Gait is stable. Discharge disposition Patient stable for discharge per discharge order if discharge order criteria are met. Patient verbalized agreement and understanding that should patient have any new recurrent or worsening symptoms, patient should seek medical attention immediately. Patient verbalized agreement and understanding of current status and plan as well as plan of care for followup. Patient verbalized agreement and understanding that if patient does not follow my discharge medication reconciliation and discharge instructions, patient is at risk for, but not limited to, discomfort, disability, deterioration and/or . This medical document was created using an electronic medical record system with [employer] dictation system. Although this document has been carefully reviewed, there may still be some phonetic and typographical errors. These areas are purely typographical due to imperfections of the software programs, and do not reflect any compromise in the patient's medical care Addendum 11:52 a.m. Physical therapy evaluated the patient and determined that he is stable for discharge home with front wheel walker and bedside commode. Patient adamantly declined declining assisted facility at this time accepting risks of fall, discomfort, instability, deterioration and/or . Again, patient has intact medical decision making capacity. Patient will be arrange for home health safety evaluation as well. Condition at Discharge: Stable Final Diagnosis/Problems List Community-acquired pneumonia with cavitation . Debility. Hypertension. Diabetes mellitus type 2. Discharge Disposition: Home with Health Services Discharge Instruct/Medications Diet: Cardiac 2g Na,low cholest Activity: No Restrictions, As Tolerated Follow Up/Referral: Discharge home after physical therapy note confirms there recommendation to send patient home and durable medical equipment arranged. Follow up with PCP in 3-5 days and follow up pending Coccidioides culture. Repeat basic metabolic panel at this visit. Follow up CT scan of the chest in 2-4 weeks. Home health safety evaluation. Follow-up with Infectious Disease, loyd Esqueda in 1 - [address] scan of the chest after 2-4 weeks and follow up results with Primary Care Physician (PCP) and Dr. Nick price. Medications: Please refer to discharge medication reconciliation. Patient counseled at length with regards to the purpose, benefits and risks of all new medications and/or medication adjustments. Patient verbalized agreement and understanding. Medications given/sent electronically to pharmacy. Of note, patient also states that he is already on home medications of lisinopril and metformin but does not recall the exact doses. Patient accelerated to maintain a list of his home medications as well as continue his home medications on discharge. Discharge Statement: "Patient was advised to return to the ER or call 911 if any headaches, di zziness, shortness of breath, chest pain, abdominal pain, bleeding, fevers, or worsening of medical condition. Patient was counseled about treatment plan, medications, possible side effects, patientverbalized understanding. All questions were answered to the best of my ability. This discharge took greater then 30 minutes in planning, reviewing documentation, counseling the patient, and discussing with other team members." ASSESSMENT ASSESSMENT Assessment EVETTE LUTZ MD Mar 09, 2024 11:40
--- NOTE | 2024-03-09 23:40 | DVHPN2 ---
Consult Progress Note Date Seen: Mar 09, 2024 Subjective Patient reports: Other (fevers are downtreding from 102.3 to 101.2 but still having high fevers , short of breath and still [place] , on room air ) Objective vital signs Vital Sign Date Time Temp Pulse Resp B/P (MAP) Pulse Ox O2 Delivery O2 Flow Rate FiO2 03/09/24 19:32 80 18 100 03/09/24 19:26 Room Air 03/09/24 19:26 0 21 03/09/24 16:55 98.5 140/68 (92) 98.5 Total Intake and Output 03/08/24 03/08/24 03/09/24 15:00 23:00 07:00 Intake Total 100 ml 400 ml 900 ml Output Total 450 ml 1150 ml Balance 100 ml -50 ml -250 ml medications Current Medications Medications Dose Ordered Sig/Mk Route Start Time Stop Time Status Last Admin Dose Admin Sodium Chloride 1,000 ml @ 100 mls/hr Q10H IV 03/07/24 20:00 03/09/24 10:03 100 MLS/HR Ondansetron HCl 4 mg Q4HP PRN IV 03/07/24 20:00 03/08/24 09:57 4 MG Albuterol 2.5 mg Q6HWA NEB 03/08/24 06:00 03/09/24 19:26 2.5 MG Levofloxacin/ Dextrose 100 ml @ 100 mls/hr DAILY IV 03/07/24 20:00 03/09/24 09:52 100 MLS/HR Diagnostic Test (Pha) 1 strip ACHS 03/08/24 11:30 03/09/24 21:26 1 STRIP Insulin Human Regular ACHS SC 03/08/24 11:30 03/09/24 21:31 6 UNITS Dextrose 50 ml UD PRN IV 03/08/24 11:15 Lisinopril 5 mg DAILY PO 03/08/24 11:15 03/09/24 09:52 5 MG Hydralazine HCl 10 mg Q6HP PRN IV 03/08/24 11:15 03/09/24 03:57 10 MG Vancomycin HCl 0 ml @ 0 mls/hr UD IV 03/08/24 16:45 Acetaminophen 650 mg Q4HP PRN PO 03/08/24 17:15 03/09/24 13:59 650 MG Vancomycin HCl 200 ml @ 200 mls/hr Q12H IV 03/09/24 05:00 03/09/24 17:00 200 MLS/HR Physical Exam: - General: Weak, diaphoretic, short of breath upon conversation. - Neck: Supple. No masses. - HEENT: PERRL. Normal lids and conjunctiva. Moist mucous membranes. Oropharynx without lesions, exudates, or excessive erythema. Normal appearance of the external aspects of the nose and ears. - Heart: Regular rhythm, tachycardic. No murmur. No lower extremity edema. - Lungs: Normal respiratory effort. Clear to auscultation bilaterally. No wheezes. No crackles. - Abdomen: Soft. Non-tender. Non-distended. No masses or abdominal hernia. - MSK: No digital cyanosis. Normal strength and tone in all four limbs. - Skin: Warm and dry, no rashes. - Neuro: Alert. No facial droop or slurred speech. Extraocular movements intact. Sensation intact to soft touch in all four limbs. - Psych: Appropriate mood. Full affect. Oriented to person, place, time, and situation. laboratory and microbiology Laboratory Tests 03/09/24 06:13 Test 03/09/24 06:13 Range/Units Serum Glucose 263 H 74-106 mg/dL Problem List/Assessment/Plan Problems(with codes): (1) Metabolic encephalopathy (2) Pneumonia (3) Sepsis Problem List/Assessment/Plan ID Problem List: - Type 2 Diabetes Mellitus - Hypertension - Cavitary Pneumonia - Unintentional Weight Loss - Night Sweats - Headaches/Migraines Assessment This is a 53-year-old male with a past medical history of Type 2 Diabetes Mellitus and Hypertension who presents with worsening hyperglycemia, shortness of breath, non-productive cough, and fevers. Symptoms have been ongoing since early February and include a 20 lb weight loss and night sweats. He was initially treated at Emergency Department with oral antibiotics (azithromycin) but did not respond. Currently, he experiences worsening shortness of breath, weakness, intermittent pleuritic chest pain, and severe headaches/migraines ongoing since January. 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 Vital signs on admission included temperature 100.8F, pulse 83 bpm, respiratory rate 20 breaths per minute, blood pressure 142/82 mmHg, and oxygen saturation 94% on room air. He is now developing worsening fevers up to 102.3F with tachycardia (heart rate of 109 bpm). Laboratory findings are significant for WBC 12.1 x10?/L, lactate 2.6 mmol/L, glucose 296 mg/dL, sodium 130 mmol/L, BUN 16 mg/dL, bicarbonate 27 mmol/L, AST 8 U/L, ALT 13 U/L, and ALP 44 U/L. Blood cultures show no growth after 24 hours. Imaging studies include a chest X-ray showing right lower lobe opacity suggestive of developing infiltrates. CT chest reveals consolidation with cavitation in the right middle lobe suggesting pneumonia and right hilar and mediastinal adenopathy, nonspecific and likely reactive. CT angiogram shows no evidence of pulmonary embolism. Head CT shows no acute intracranial hemorrhage. Given the cavitary pneumonia, differential diagnoses include anaerobes, gram- negative rods, MRSA, and fungal infection (coccidioidomycosis). Alternative diagnoses such as malignancy are also considered. 03/09: ultrasound is negative for DVT , white count is 9.5 Plan: - Continue levofloxacin. - continue vancomycin. - Obtain sputum cultures to identify the causative organism. - Check MRSA nares culture. - Check coccidioides antibody. - If fevers and dyspnea improve with vancomycin, and after obtaining MRSA nares and sputum cultures, consider discharge home with oral Bactrim and levofloxacin for a 14-day treatment course. - Schedule follow-up with Infectious Disease in two weeks. - Repeat CT scan after 2-4 weeks. - Monitor clinical recovery from pneumonia. - Continue to monitor for alternative diagnoses, including malignancy and fungal infection, which are not currently being treated. Plan discussed with: JEZ Mooney MD Mar 09, 2024 23:40
[2024-03-10] VITALS (9 sets, daily range): BP systolic 145–186; BP diastolic 75–90; PULSE 64–100; RESP 17–26; TEMP 98.5–100.2; O2SAT 95–100
[2024-03-10 03:57] LABS: Basophils # (auto) 0.1 10 ^3/uL (0-0.2); Basophils % (auto) 0.7 % (0.0-2.0); Eosinophils # (auto) 0 10 ^3/uL (0-0.8); Eosinophils % (auto) 0.1 % (0.0-7.0); Hematocrit 34.4 % (41.0-53.0); Hemoglobin 11.7 g/dL (13.5-17.5); Lymphocytes # (auto) 1.4 10 ^3/uL (0.4-5.4); Lymphocytes % (auto) 12.3 % (10.0-50.0); Mean Corpuscular Hemoglobin 29.1 pg (28.0-32.0); Mean Corpuscular Hgb Conc. 34.1 g/dL (32.0-36.0); Mean Corpuscular Volume 85.2 fL (80.0-100.0); Monocytes # (auto) 1.1 10 ^3/uL (0-1.3); Monocytes % (auto) 9.8 % (0.0-12.0); Neutrophils # (auto) 8.9 10 ^3/uL (1.6-8.6); Neutrophils % (auto) 77.1 % (37.0-80.0); Platelet Count (auto) 289 10^3/uL (140-450); Red Blood Cells 4.04 10^6/uL (4.5-5.90); White Blood Cell 11.5 10^3/uL (4.4-10.8)
[2024-03-10 04:14] LABS: Potassium 3.5 mmol/L (3.5-5.1)
[2024-03-10 04:15] LABS: Anion Gap 11 (5-15); Calcium 9.2 mg/dL (8.7-10.4); Carbon Dioxide 22 mmol/L (20-31)
[2024-03-10 04:20] LABS: BUN/Creatinine Ratio 8.8 (10.0-20.0); Chloride 93 mmol/L (98-107); Sodium 126 mmol/L (136-145)
[2024-03-10 04:21] LABS: Blood Urea Nitrogen 8 mg/dL (9-23); Glucose 249 mg/dL (74-106)
[2024-03-10] MEDS ORDERED: VANCOMYCIN 1GM/200ML PREMIX 200 ML IV SCH (15:00)
--- NOTE | 2024-03-10 23:14 | DVHPN2 ---
Consult Progress Note Date Seen: Mar 10, 2024 Subjective Patient reports: Feels better (nofevers, sob improved) Objective vital signs Vital Sign Date Time Temp Pulse Resp B/P (MAP) Pulse Ox O2 Delivery O2 Flow Rate FiO2 03/10/24 11:25 64 20 100 03/10/24 11:19 Room Air 0.0 03/10/24 11:19 21 03/10/24 09:00 100.2 03/10/24 09:00 150/78 (102) Total Intake and Output 03/09/24 03/09/24 03/10/24 15:00 23:00 07:00 Intake Total 1300 ml 1400 ml 1000 ml Output Total 400 ml 720 ml Balance 1300 ml 1000 ml 280 ml medications PHYSICAL EXAM: - GENERAL: Alert and oriented x 3. No acute distress. Well-nourished. - EYES: EOMI. Anicteric. - HENT: Moist mucous membranes. No scleral icterus. No cervical lymphadenopathy. - LUNGS: Clear to auscultation bilaterally. No accessory muscle use. - CARDIOVASCULAR: Regular rate and rhythm. No murmur. No JVD. - ABDOMEN: Soft, non-tender and non-distended. No palpable masses. - EXTREMITIES: No edema. Non-tender.?SKIN: No rashes or lesions. Warm. - NEUROLOGIC: No focal neurological deficits. CN II-XII grossly intact, but not individually tested. - PSYCHIATRIC: Cooperative. Appropriate mood and affect. laboratory and microbiology Laboratory Tests 03/10/24 03:46 Test 03/10/24 03:46 Range/Units Serum Glucose 249 H 74-106 mg/dL Problem List/Assessment/Plan Problem List/Assessment/Plan ID Problem List: - Type 2 Diabetes Mellitus - Hypertension - Cavitary Pneumonia - Unintentional Weight Loss - Night Sweats - Headaches/Migraines Assessment This is a 53-year-old male with a past medical history of Type 2 Diabetes Mellitus and Hypertension who presents with worsening hyperglycemia, shortness of breath, non-productive cough, and fevers. Symptoms have been ongoing since early February and include a 20 lb weight loss and night sweats. He was initially treated at Emergency Department with oral antibiotics (azithromycin) but did not respond. Currently, he experiences worsening shortness of breath, weakness, intermittent pleuritic chest pain, and severe headaches/migraines ongoing since January. 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 Vital signs on admission included temperature 100.8F, pulse 83 bpm, respiratory rate 20 breaths per minute, blood pressure 142/82 mmHg, and oxygen saturation 94% on room air. He is now developing worsening fevers up to 102.3F with tachycardia (heart rate of 109 bpm). Laboratory findings are significant for WBC 12.1 x10?/L, lactate 2.6 mmol/L, glucose 296 mg/dL, sodium 130 mmol/L, BUN 16 mg/dL, bicarbonate 27 mmol/L, AST 8 U/L, ALT 13 U/L, and ALP 44 U/L. Blood cultures show no growth after 24 hours. Imaging studies include a chest X-ray showing right lower lobe opacity suggestive of developing infiltrates. CT chest reveals consolidation with cavitation in the right middle lobe suggesting pneumonia and right hilar and mediastinal adenopathy, nonspecific and likely reactive. CT angiogram shows no evidence of pulmonary embolism. Head CT shows no acute intracranial hemorrhage. Given the cavitary pneumonia, differential diagnoses include anaerobes, gram- negative rods, MRSA, and fungal infection (coccidioidomycosis). Alternative diagnoses such as malignancy are also considered. 03/09: ultrasound is negative for DVT , white count is 9.5 Plan: - Continue levofloxacin. - continue vancomycin. - Obtain sputum cultures to identify the causative organism. - Check MRSA nares culture. - Check coccidioides antibody. - If fevers and dyspnea improve with vancomycin, and after obtaining MRSA nares and sputum cultures, consider discharge home with oral Bactrim and levofloxacin for a 14-day treatment course. - Schedule follow-up with Infectious Disease in two weeks. - Repeat CT scan after 2-4 weeks. - Monitor clinical recovery from pneumonia. - Continue to monitor for alternative diagnoses, including malignancy and fungal infection, which are not currently being treated. Plan discussed with: Patient JEZ MICHELLE MD Mar 10, 2024 23:14
== END 2024-03-10 12:54 | disposition home or self-care (01) | DRG 871 ==
LOC: ER 15:57 → TELE 19:48 → TELE-EAST 03-08 09:09
PROVIDERS: ADMIT Internal Medicine; ATTEND Internal Medicine
DX: A41.9 Sepsis, unspecified organism (principal); G93.41 Metabolic encephalopathy; J15.69 Pneumonia due to other Gram-negative bacteria; J15.9 Unspecified bacterial pneumonia; E87.20 Acidosis, unspecified; E11.65 Type 2 diabetes mellitus with hyperglycemia; I10 Essential (primary) hypertension; R63.4 Abnormal weight loss; G43.909 Migraine, unspecified, not intractable, without status migrainosus; Z87.891 Personal history of nicotine dependence; Z68.25 Body mass index [BMI] 25.0-25.9, adult
CPT/HCPCS: 36415; 70450; 71045; 71275; 80048; 80053; 80202; 81001; 82962; 83605; 83880; 84484; 85025; 86635; 87040; 87081; 93005; 93970; 94640; 97162; 99291; G0378; J1815; J1885; J1956; J2405